=== PATIENT | female | born 1945 | race Caucasian/White ===

== ENCOUNTER 2018-08-23 16:31 | Emergency (ER) | payer MEDICARE ==
[~2018-08-23] VITALS: Ht 157.5 cm; Wt 83.9 kg
[2018-08-23] MEDS ORDERED: ASPIRIN325 MG PO (16:43)
[2018-08-23] MEDS ORDERED: METOPROLOL SUCC25 MG PO (16:44)
[2018-08-23] MEDS ORDERED: LOSARTAN-HCTZ1 EAC1 PO (16:44)
[2018-08-23] MEDS ORDERED: CO Q-1010 MG PO (16:45)
[2018-08-23] MEDS ORDERED: MELATONIN1 MG PO (16:45)
--- NOTE | 2018-08-23 18:46 | EKG ---
[facility] [address] [facility] [place] [address] Signed Atrial fibrillation with slow ventricular response with premature ventricular or aberrantly conducted complexes Inferior infarct (cited on or before 23-AUG-2018) Abnormal ECG When compared with ECG of 23-AUG-2018 16:36, (Unconfirmed) Vent. rate has decreased BY [address] no longer depressed in Anterior leads Nonspecific T wave abnormality, worse in Anterior leads QT has shortened Confirmed by ANGELLA ZAMARRIPA DO ([id number]) on 08/23/2018 6:46:29 PM Electronically Signed By: ANEGLLA ZAMARRIPA DO 08/23/18 1846 PATIENT NAME: ROBERT ANNE Electrocardiogram DATE OF : 45 PHYSICIAN: ANGELLA ZAMARRIPA DO REPORT #: [id number] REPORT IS CONFIDENTIAL AND NOT TO BE RELEASED WITHOUT AUTHORIZATION
--- NOTE | 2018-08-23 18:46 | EKG ---
[facility] [address] [facility] [place], [place] [address] Signed Atrial fibrillation with rapid ventricular response Inferior infarct , age undetermined Abnormal ECG No previous ECGs available Confirmed by ANGELLA ZAMARRIPA DO ([id number]) on 08/23/2018 6:45:58 PM Electronically Signed By: ANGELLA ZAMARRIPA DO 08/23/18 1846 PATIENT NAME: ROBERT ANNE Electrocardiogram DATE OF : 45 PHYSICIAN: ANGELLA ZAMARRIPA DO REPORT #: [id number] REPORT IS CONFIDENTIAL AND NOT TO BE RELEASED WITHOUT AUTHORIZATION
== END 2018-08-23 18:40 | disposition short-term general hospital (02) ==
LOC: ED 16:31
PROC: 0T9B70Z Drainage of Bladder with Drainage Device, Via Natural or Artificial Opening (ICD-10-PCS; principal; 2018-08-23)
DX: I49.5 Sick sinus syndrome (principal); I10 Essential (primary) hypertension; E78.5 Hyperlipidemia, unspecified; Z87.891 Personal history of nicotine dependence; Z90.710 Acquired absence of both cervix and uterus; Z90.49 Acquired absence of other specified parts of digestive tract; Z88.0 Allergy status to penicillin; Z79.82 Long term (current) use of aspirin; Z79.899 Other long term (current) drug therapy
CPT/HCPCS: 51702; 71045; 80053; 84484; 85025; 85610; 85730; 93005; 93010; 99291; J2405

== ENCOUNTER 2018-12-12 05:22 | Emergency (ER) | payer MEDICARE ==
[~2018-12-12] VITALS: Ht 157.5 cm; Wt 88.5 kg
[~2018-12-12 05:22] MED LIST: ACID CONTROLLER20 MG; ACID CONTROLLER20 MG PO; ASPIRIN325 MG PO; CO Q-10100 MG PO; FLECAINIDE ACE100 MG PO; LOSARTAN-HCTZ1 EAC1 PO; LOVASTATIN40 MG PO; MELATONIN5 M2 PO; METOPROLOL SUCC25 MG PO; NORVASC10 MG PO; TOPROL XL25 MG PO; WARFARIN SODIUM5 MG PO
--- OUTSIDE RECORDS SUMMARY | 2018-12-12 05:24 | XMS ---
PreManage Notification: ROBERT ANNE [employer] General Manager Events No recent Security Events currently on file CRITERIA MET - [facility] - Has Care Guidelines - [facility] - 2 Visits in 30 Days CARE PROVIDERS KERI SEQUEIRA Nurse Practitioner: Family 09/19/2018-Current PHONE: Unknown Miguel A has no Care Guidelines for this patient. Care History Medical/Surgical 09/19/2018 [facility] - Patient is currently established with [facility]. If patient is seen in the ED during business hours. Please contact CHWs at [facility]. Care Recommendation: This patient has had 5 or more Emergency Department visits in the last 12 months.\T\nbsp; Patient requires education on the scope and purpose of the ED as an acute care provider not a Primary Care Provider and should not be utilized for chronic conditions.\T\nbsp; These are guidelines and the provider should exercise clinical judgment when providing care. E.D. VISIT COUNT (12 MO.) 1 [facility] 4 [facility] TOTAL 5 NOTE: Visits indicate total known visits. ED/UCC VISIT TRACKING (12 MO.) 12/12/2018 05:23 [facility] TYPE: Emergency COMPLAINT: - RAPID HEART RATE 11/25/2018 03:15 [facility] [place] TYPE: Emergency COMPLAINT: - CHEST PAIN DIAGNOSES: - Unspecified atrial fibrillation - Chest pain, unspecified - Allergy status to other drugs, medicaments and biological substances status - Allergy status to penicillin - Personal history of nicotine dependence - Presence of cardiac pacemaker - Other fci (current) drug therapy - Hyperlipidemia, unspecified - Essential (primary) hypertension 09/18/2018 20:32 [facility] TYPE: Emergency DIAGNOSES: - Bradycardia - Syncope 09/18/2018 16:31 [facility] TYPE: Emergency COMPLAINT: - HEART PROBLEMS DIAGNOSES: - Syncope and collapse - Acquired absence of both cervix and uterus - Hyperlipidemia, unspecified - prison (current) use of anticoagulants - Allergy status to other drugs, medicaments and biological substances status - Acquired absence of other specified parts of digestive tract - intermediate project manager (current) use of aspirin - Allergy status to penicillin - Unspecified injury of head, initial encounter - Personal history of nicotine dependence - Other fci (current) drug therapy - Fall on same level, unspecified, initial encounter - Bradycardia, unspecified - Essential (primary) hypertension 08/23/2018 16:32 [facility] TYPE: Emergency COMPLAINT: - CHEST PAIN,DIZZINESS DIAGNOSES: - Hyperlipidemia, unspecified - Sick sinus syndrome - intermediate project manager (current) use of aspirin - Acquired absence of both cervix and uterus - Essential (primary) hypertension - Personal history of nicotine dependence - Allergy status to penicillin - Acquired absence of other specified parts of digestive tract - Other terminal clerk (current) drug therapy - Chest pain, unspecified INPATIENT VISIT TRACKING (12 MO.) 09/18/2018 20:32 [facility] SIMONS TYPE: General Medicine DIAGNOSES: - Syncope and collapse - Syncope - Bradycardia - Sick sinus syndrome - prison (current) use of anticoagulants - Bradycardia, unspecified - Ventricular tachycardia 08/23/2018 19:55 [facility] TYPE: General Medicine DIAGNOSES: - Tachy-shirley syndrome - Sick sinus syndrome [email or web address]
--- NOTE | 2018-12-12 14:32 | EKG ---
[facility] [address] [facility] [place] [address] Signed Atrial fibrillation with occasional ventricular-paced complexes Abnormal ECG When compared with ECG of 25-NOV-2018 03:21, Electronic ventricular pacemaker has replaced Atrial fibrillation Confirmed by ANGELLA ZAMARRIPA DO ([id number]) on 12/12/2018 2:32:17 PM Electronically Signed By: ANGELLA ZAMARRIPA DO 12/12/18 1432 PATIENT NAME: SHANE ANNEHELENE Uriarte Electrocardiogram DATE OF : 45 PHYSICIAN: ANGELLA ZAMARRIPA DO REPORT #: [id number] REPORT IS CONFIDENTIAL AND NOT TO BE RELEASED WITHOUT AUTHORIZATION
== END 2018-12-12 09:38 | disposition home or self-care (01) ==
LOC: ED 05:22
DX: I48.91 Unspecified atrial fibrillation (principal); I10 Essential (primary) hypertension; E78.5 Hyperlipidemia, unspecified; Z87.891 Personal history of nicotine dependence; Z95.0 Presence of cardiac pacemaker; Z88.0 Allergy status to penicillin; Z88.8 Allergy status to other drugs, medicaments and biological substances; Z79.01 Long term (current) use of anticoagulants; Z79.899 Other long term (current) drug therapy
CPT/HCPCS: 36415; 71045; 80053; 83735; 84484; 85025; 85610; 93005; 93010; 96374; 99285-25

== ENCOUNTER 2019-01-06 08:21 | Emergency (ER) | payer MEDICARE ==
[~2019-01-06] VITALS: Ht 157.5 cm; Wt 88.5 kg
[~2019-01-06 08:21] MED LIST changes: +FUROSEMIDE20 MG PO; +LOSARTAN POTAS100 MG PO; +METOPROLOL SUCC50 MG PO
--- OUTSIDE RECORDS SUMMARY | 2019-01-06 08:24 | XMS ---
PreManage Notification: ROBERT ANNE Security Bill [employer] Clerk Events No recent Security Events currently on file CRITERIA MET - 6 ED Visits in 6 Months - [facility] - Has Care Guidelines - [facility] - 2 Visits in 30 Days CARE PROVIDERS KERI SEQUEIRA Nurse Practitioner: Family 09/19/2018-Current PHONE: Unknown Miguel A has no Care Guidelines for this patient. Care History Medical/Surgical 09/19/2018 [facility] - Patient is currently established with [facility]. If patient is seen in the ED during business hours. Please contact CHWs at [facility]. Care Recommendation: This patient has had 5 [...] VISIT COUNT (12 MO.) 1 [facility] 5 [facility] TOTAL 6 NOTE: Visits indicate total known visits. ED/UCC VISIT TRACKING (12 MO.) 01/06/2019 08:22 [facility] [place] TYPE: Emergency COMPLAINT: - RAPID HEARTRATE,POSS HIGH BP 12/12/2018 05:23 [facility] TYPE: Emergency COMPLAINT: - RAPID HEART RATE DIAGNOSES: - coal bagger (current) use of anticoagulants - Presence of cardiac pacemaker - Allergy status to penicillin - Other long term care administrator (current) drug therapy - Unspecified atrial fibrillation - Hyperlipidemia, unspecified - Other chest pain - Personal history of nicotine dependence - Allergy status to other drugs, medicaments and biological substances status - Essential (primary) hypertension 11/25/2018 03:15 [facility] TYPE: Emergency COMPLAINT: - CHEST PAIN DIAGNOSES: - Unspecified atrial fibrillation - Chest pain, unspecified - Allergy status to other drugs, medicaments and biological substances status - Allergy status to penicillin - Personal history of nicotine dependence - Presence of cardiac pacemaker - Other long term care administrator (current) drug therapy - Hyperlipidemia, unspecified - Essential (primary) hypertension 09/18/2018 20:32 [facility] TYPE: Emergency DIAGNOSES: - Bradycardia - Syncope 09/18/2018 16:31 [facility] TYPE: Emergency COMPLAINT: - HEART PROBLEMS DIAGNOSES: - Syncope and collapse - Acquired absence of both cervix and uterus - Hyperlipidemia, unspecified - long-term (current) use of anticoagulants - Allergy status to other drugs, medicaments and biological substances status - Acquired absence of other specified parts of digestive tract - coal bagger (current) use of aspirin - Allergy status to penicillin - Unspecified injury of head, initial encounter - Personal history of nicotine dependence - Other correction (current) drug therapy - Fall on same level, unspecified, initial encounter - Bradycardia, unspecified - Essential (primary) hypertension 08/23/2018 16:32 [facility] [place] TYPE: Emergency COMPLAINT: - CHEST PAIN,DIZZINESS DIAGNOSES: - Hyperlipidemia, unspecified - Sick sinus syndrome - long-term (current) use of aspirin - Acquired absence of both cervix and uterus - Essential (primary) hypertension - Personal history of nicotine dependence - Allergy status to penicillin - Acquired absence of other specified parts of digestive tract - Other long term care administrator (current) drug therapy - Chest pain, unspecified INPATIENT VISIT TRACKING (12 MO.) [facility]2018 [facility] TYPE: General Medicine DIAGNOSES: - Syncope and collapse - Syncope - Bradycardia - Sick sinus syndrome - long-term (current) use of anticoagulants - Bradycardia, unspecified - Ventricular tachycardia 08/23/2018 19:55 [facility] DIAGNOSES: - Tachy-shirley syndrome - Sick sinus syndrome [email or web address]
[2019-01-06] MEDS ORDERED: METOPROLOL SUCC50 MG PO (10:04)
[2019-01-06] MEDS ORDERED: K-TAB ER20 MEQ PO (10:19)
--- NOTE | 2019-01-06 19:42 | EKG ---
[facility] [address] [facility] [place] [address] Signed Atrial flutter with variable AV block with occasional ventricular-paced complexes and with premature ventricular or aberrantly conducted complexes Inferior infarct , age undetermined Abnormal ECG When compared with ECG of 12-DEC-2018 05:29, Vent. rate has increased BY 12 BPM Confirmed by ANGELLA ZAMARRIPA DO ([id number]) on 01/06/2019 7:42:01 PM Electronically Signed By: ANGELLA ZAMARRIPA DO 01/06/191941 PATIENT NAME: ROBERT ANNE Electrocardiogram DATE OF : 45 PHYSICIAN: ANGELLA ZAMARRIPA DO REPORT #: [id number] REPORT IS CONFIDENTIAL AND NOT TO BE RELEASED WITHOUT AUTHORIZATION
== END 2019-01-06 10:45 | disposition home or self-care (01) ==
LOC: ED 08:21
DX: I48.91 Unspecified atrial fibrillation (principal); I10 Essential (primary) hypertension; E78.5 Hyperlipidemia, unspecified; Z95.0 Presence of cardiac pacemaker; Z88.0 Allergy status to penicillin; Z88.8 Allergy status to other drugs, medicaments and biological substances; Z79.01 Long term (current) use of anticoagulants; Z79.899 Other long term (current) drug therapy
CPT/HCPCS: 80053; 84484; 85025; 93005; 93010; 99285-25

== ENCOUNTER 2020-12-07 05:15 | Emergency (ER) | payer MEDICARE ==
[~2020-12-07] VITALS: Ht 157.5 cm; Wt 90.7 kg
[~2020-12-07 05:15] MED LIST changes: +COGNIUM PO; +COZAAR50 MG PO; +K-TAB ER20 MEQ PO; +LIPITOR20 MG PO; +LIPITOR40 MG PO; +LOSARTAN POTASS50 MG PO; +NITROGLYCERIN0.4 MG SL; +OXYBUTYNIN CHLOR5 M1 PO; +POTASSIUM CHLO20 ME1 PO; +TUMS200 MG PO; +VITAMIN B-225 MG PO
--- NOTE | 2020-12-07 16:56 | EKG ---
[facility] [address] [facility] [place] [address] Signed Atrial-paced rhythm Left axis deviation Abnormal ECG When compared with ECG of 02-JUN-2019 08:37, premature supraventricular complexes are no longer present Confirmed by FEDERICO FOWLER MD ([id number]) on 12/07/2020 4:56:05 PM Electronically Signed By: FEDERICO FOWLER MD 12/07/20 1656 PATIENT NAME: DAYANAROBERT E Electrocardiogram DATE OF : 45 PHYSICIAN: FEDERICO FOWLER MD REPORT #: [id number] REPORT IS CONFIDENTIAL AND NOT TO BE RELEASED WITHOUT AUTHORIZATION
== END 2020-12-07 09:58 | disposition home or self-care (01) ==
LOC: ED 05:15
DX: R07.89 Other chest pain (principal); I10 Essential (primary) hypertension; E78.5 Hyperlipidemia, unspecified; I48.91 Unspecified atrial fibrillation; Z87.891 Personal history of nicotine dependence; Z88.0 Allergy status to penicillin; Z88.8 Allergy status to other drugs, medicaments and biological substances; Z79.899 Other long term (current) drug therapy; Z79.01 Long term (current) use of anticoagulants
CPT/HCPCS: 71045; 80053; 83735; 84484; 85025; 85610; 85730; 93005; 93010; 96374; 96375; 99285-25; J1170; J2405

== ENCOUNTER 2020-12-26 12:05 | Emergency (ER) | payer MEDICARE ==
[~2020-12-26] VITALS: Ht 157.5 cm; Wt 78.5 kg
--- OUTSIDE RECORDS SUMMARY | 2020-12-26 12:12 | XMS ---
PreManage Notification: ROBERT ANNE Security Environmental Monitoring Specialist Events No recent Security Events currently on file CRITERIA MET - [facility] - 2 Visits in 30 Days CARE PROVIDERS KERI SEQUEIRA Nurse Practitioner: Family 09/19/2018-Current PHONE: [phone] Miguel A has no Care Guidelines for this patient. Care History Medical/Surgical 01/07/2019 [facility] - CHW RECEIVED -ED CASE MANAGEMENT CONSULT- HELP PATIENT WITH GETTING SEEN BY PCP KERI SEQUEIRA AT AN EARLIER DATE THAN [address] - CHW PROVIDED INFORMATION TO CHW OF THE CLINIC ASHLI-SHE WILL BE IN CONTACT WITH PROVIDER AND SEE ABOUT AN EARLIER FOLLOW UP APT AVAILABILITY 09/19/2018 [facility] - Patient is currently established with [facility]. If patient is seen in the ED during business hours. Please contact CHWs at [facility]. Care Recommendation: This patient has had [...] providing care. E.D. VISIT COUNT (12 MO.) 2 [facility] TOTAL 2 NOTE: Visits indicate total known visits. ED/UCC VISIT TRACKING (12 MO.) 12/26/2020 12:06 [facility] TYPE: Emergency COMPLAINT: - LOWER ABD PAIN 12/07/2020 05:15 [facility] TYPE: Emergency COMPLAINT: - CHEST PAIN DIAGNOSES: - Hyperlipidemia, unspecified - Allergy status to penicillin - Essential (primary) hypertension - Other terminal manager (current) drug therapy - superintendent terminal (current) use of anticoagulants - Other chest pain - Allergy status to other drugs, medicaments and biological substances - Unspecified atrial fibrillation - Personal history of nicotine dependence INPATIENT VISIT TRACKING (12 MO.) No inpatient visits to display in this time frame [email or web address]
[2020-12-26] MEDS ORDERED: ATORVASTATIN CA40 MG PO (13:05)
[2020-12-26] MEDS ORDERED: CIPRO500 MG PO (16:10)
[2020-12-26] MEDS ORDERED: FLAGYL500 MG PO (16:10)
== END 2020-12-26 16:41 | disposition home or self-care (01) ==
LOC: ED 12:05
DX: K57.32 Diverticulitis of large intestine without perforation or abscess without bleeding (principal); I10 Essential (primary) hypertension; E78.5 Hyperlipidemia, unspecified; I48.91 Unspecified atrial fibrillation; Z87.891 Personal history of nicotine dependence; Z88.0 Allergy status to penicillin; Z88.8 Allergy status to other drugs, medicaments and biological substances; Z79.899 Other long term (current) drug therapy; Z79.01 Long term (current) use of anticoagulants
CPT/HCPCS: 74177; 80053; 81001; 83690; 85025; 85610; 87088; 99284-25; Q9967